=== PATIENT | female | born 1950 ===

== ENCOUNTER 2020-04-20 06:32 | Inpatient (IN) | payer OTHER ==
[~2020-04-20] VITALS: Ht 154.9 cm; Wt 87.1 kg
[~2020-04-20 06:32] MED LIST: CALCIUM500 M1 PO; HYDROCHLOROTHIA25 MG PO; MAXIMUM D3325 MCG PO; PANTOPRAZOLE SO40 MG PO; VERELAN240 MG PO; [UNRECOGNIZED DRUG - OTHER]
[2020-04-21] MEDS ORDERED: FAMOTIDINE20 MG (08:03)
[2020-04-21] MEDS ORDERED: CANASA1000 MG (08:05)
[2020-04-22] MEDS ORDERED: CHOLESTYRAMI239.4 GM PO (08:11)
[2020-04-22] MEDS ORDERED: INTESTINEX680 M1 PO (08:11)
== END 2020-04-22 10:41 | disposition home or self-care (01) | DRG 331 ==
LOC: CIR.AMB 06:32 → O/R 15:59 → SURG 15:59
PROVIDERS: ADMIT Surgery; ATTEND Surgery
PROC: 0JQC0ZZ Repair Pelvic Region Subcutaneous Tissue and Fascia, Open Approach (ICD-10-PCS; 2020-04-20)
PROC: 0UQF7ZZ Repair Cul-de-sac, Via Natural or Artificial Opening (ICD-10-PCS; 2020-04-20)
PROC: 0DBP7ZZ Excision of Rectum, Via Natural or Artificial Opening (ICD-10-PCS; principal; 2020-04-20 08:45)
DX: K62.3 Rectal prolapse (principal); N81.5 Vaginal enterocele